=== PATIENT | male | born 1945 | race Caucasian/White ===

== ENCOUNTER → 2020-04-07 | Outpatient (CLI) | payer OTHER ==
[~2020-04-07] MED LIST: ASPI325T57 PO; ATOR80TA59 PO; FLOM0.4C39 PO; ISOS30TAB PO; LISI40TA PO; METO50TA7 PO; MULTCAP PO; NITR0.4S14 SL; PEPC10TA6 PO; VITA50005 PO
== END ==
LOC: M LABSMTC 12:51
PROVIDERS: ATTEND Anesthesiology
DX: Z01.818 Encounter for other preprocedural examination (principal); Z11.59 Encounter for screening for other viral diseases; Z03.818 Encounter for observation for suspected exposure to other biological agents ruled out
CPT/HCPCS: C9803; U0003

== ENCOUNTER 2020-04-10 09:13 | Day surgery (SDC) | payer OTHER ==
[~2020-04-10] VITALS: Ht 172.7 cm; Wt 88.4 kg
[~2020-04-10 09:13] MED LIST changes: -LISI40TA PO; +LISI40TA4 PO; +NS 1,000 ML IV ONE
[2020-04-10] MEDS ORDERED: propofoL 200 MG/20 ML VIAL As Ordered ONE ×2 (09:54→11:04)
--- NOTE | 2020-04-10 10:13 | ROOR ---
Patient Name: Yvon Moreau Procedure Date: 04/10/2020 9:53 AM Date of : 1945 Age: 74 Room: [facility] Gender: Male Note Status: Finalized Procedure: Total Colonoscopy to Cecum Indications: Screening for colorectal malignant neoplasm Providers: Serg Velarde MD Referring MD: Rad[facility]D [facility], Admin., Kamlesh Martínez Md Requesting Provider: Medicines: Monitored Anesthesia Care Complications: No immediate complications. Procedure: Pre-Anesthesia Assessment: - The heart rate, respiratory rate, oxygen saturations, blood pressure, adequacy of pulmonary ventilation, and response to care were monitored throughout the procedure. The Colonoscope was introduced through the anus and advanced to the cecum, identified by appendiceal orifice and ileocecal valve. The colonoscopy was performed without difficulty. The patient tolerated the procedure well. The quality of the bowel preparation was excellent. Findings: The perianal and digital rectal examinations were normal. Non-bleeding internal hemorrhoids were found during retroflexion. The hemorrhoids were small and Grade I (internal hemorrhoids that do not prolapse). Multiple small and large-mouthed diverticula were found in the recto-sigmoid colon, sigmoid colon and descending colon. The exam was otherwise without abnormality on direct and retroflexion views. Impression: - Non-bleeding internal hemorrhoids. - Diverticulosis in the recto-sigmoid colon, in the sigmoid colon and in the descending colon. - The examination was otherwise normal on direct and retroflexion views. - No specimens collected. - The exam was otherwise normal to the cecum. Recommendation: - Patient has a contact number available for emergencies. The signs and symptoms of potential delayed complications were discussed with the patient. Return to normal activities tomorrow. Written discharge instructions were provided to the patient. - High fiber diet. - Discharge patient to home. - Continue present medications. - Repeat colonoscopy for symptoms only. - Return to referring physician. - The findings and recommendations were discussed with the patient. Serg Velarde MD eSrg Velarde MD 04/10/2020 10:13:12 AM Electronically signed by Serg Velarde MD Number of Addenda: 0 Note Initiated On: 04/10/2020 9:53 AM Estimated Blood Loss: Estimated blood loss: none.
[2020-04-10 10:38] VITALS: BP 159/89
== END 2020-04-10 10:41 | disposition home or self-care (01) ==
LOC: M OPP 09:13
PROVIDERS: ATTEND Internal Medicine Gastroenterology
DX: Z12.11 Encounter for screening for malignant neoplasm of colon (principal); K57.30 Diverticulosis of large intestine without perforation or abscess without bleeding; K64.0 First degree hemorrhoids; G47.30 Sleep apnea, unspecified; Z79.82 Long term (current) use of aspirin; Z79.899 Other long term (current) drug therapy

== ENCOUNTER → 2024-09-27 | Outpatient (CLI) | payer OTHER ==
[~2024-09-27] MED LIST changes: +ERGO500029 PO; -NS 1,000 ML IV ONE; -VITA50005 PO
== END ==
LOC: M RAD 16:44
PROVIDERS: ATTEND Internal Medicine
DX: R41.3 Other amnesia (principal)